=== PATIENT | male | born 1985 | race Caucasian/White ===

== ENCOUNTER 2019-10-18 12:47 | Emergency (ER) | payer OTHER ==
[~2019-10-18] VITALS: Ht 172.7 cm; Wt 80.7 kg
[2019-10-18] MEDS ORDERED: SYMBICORT 80/10.2 GM (13:07)
== END 2019-10-18 14:49 | disposition home or self-care (01) ==
LOC: ER 12:47
DX: S42.452A Displaced fracture of lateral condyle of left humerus, initial encounter for closed fracture (principal); S60.212A Contusion of left wrist, initial encounter; M12.522 Traumatic arthropathy, left elbow; V19.88XA Pedal cyclist (driver) (passenger) injured in other specified transport accidents, initial encounter; Y93.55 Activity, bike riding; Y92.414 Local residential or business street as the place of occurrence of the external cause; Y99.8 Other external cause status

== ENCOUNTER 2020-03-27 10:46 | Outpatient (CLI) | payer OTHER ==
[~2020-03-27 10:46] MED LIST: SYMBICORT 80/10.2 GM
== END 2020-03-27 11:20 | disposition home or self-care (01) ==
LOC: OFIC 805 10:46
PROVIDERS: ATTEND Otolaryngology
DX: J32.8 Other chronic sinusitis (principal); J33.8 Other polyp of sinus; R09.81 Nasal congestion

== ENCOUNTER 2021-05-07 16:04 | Inpatient (IN) | payer OTHER ==
[~2021-05-07] VITALS: Ht 172.7 cm; Wt 77.1 kg
[2021-05-07] MEDS ORDERED: PULMICORT1 MG/2 ML (16:27)
== END 2021-05-13 15:16 | disposition home or self-care (01) | DRG 417 ==
LOC: ER 16:04 → MEDJ 05-08 09:21
PROVIDERS: Surgery; ADMIT Internal Medicine; ATTEND Internal Medicine
PROC: BW2110Z Computerized Tomography (CT Scan) of Abdomen and Pelvis using Low Osmolar Contrast, Unenhanced and Enhanced (ICD-10-PCS; 2021-05-07)
PROC: BF37ZZZ Magnetic Resonance Imaging (MRI) of Pancreas (ICD-10-PCS; 2021-05-08)
PROC: BF50200 Other Imaging of Bile Ducts using Fluorescing Agent, Indocyanine Green Dye, Intraoperative (ICD-10-PCS; 2021-05-12)
PROC: 0FT44ZZ Resection of Gallbladder, Percutaneous Endoscopic Approach (ICD-10-PCS; principal; 2021-05-12 12:00)
DX: K80.10 Calculus of gallbladder with chronic cholecystitis without obstruction (principal); K85.10 Biliary acute pancreatitis without necrosis or infection

== ENCOUNTER 2022-11-12 11:03 | Emergency (ER) | payer OTHER ==
[~2022-11-12 11:03] MED LIST changes: +PULMICORT1 MG/2 ML
== END 2022-11-12 14:03 | disposition home or self-care (01) ==
LOC: ER 11:03
DX: S49.82XA Other specified injuries of left shoulder and upper arm, initial encounter (principal); W18.39XA Other fall on same level, initial encounter; Y93.I9 Activity, other involving external motion; Y92.89 Other specified places as the place of occurrence of the external cause; Y99.8 Other external cause status; Z88.6 Allergy status to analgesic agent